=== PATIENT | female | born 1975 | race Caucasian/White ===

== ENCOUNTER 2017-03-14 07:17 | Day surgery (SDC) | payer BC ==
[~2017-03-14] VITALS: Ht 162.6 cm; Wt 65.8 kg
[~2017-03-14 07:17] MED LIST: ALEVE220 MG PO; FLOMAX0.4 MG PO; PERCOCET 5/31 TABLET PO; TORADOL10 MG PO; WOMEN MULTIVIT1 EACH PO; ZOFRAN ODT4 MG PO
[2017-03-14 07:58] VITALS: BP 122/56
[2017-03-14] MEDS ORDERED: ENDOCET 5-3251 EACH PO (11:30)
[2017-03-14] MEDS ORDERED: IBUPROFEN800 MG PO (11:30)
[2017-03-14 13:33] VITALS: BP 151/82
[2017-03-14 14:40] VITALS: BP 122/65
== END 2017-03-14 14:54 | disposition home or self-care (01) ==
LOC: SDC 07:17
DX: D25.9 Leiomyoma of uterus, unspecified (principal); N72 Inflammatory disease of cervix uteri; N83.202 Unspecified ovarian cyst, left side
CPT/HCPCS: 88307; J0131; J0690; J1100; J1170; J1885; J2250; J2405; J2765; J3010